=== PATIENT | male | born 1970 | race Caucasian/White ===

== ENCOUNTER 2020-07-03 17:31 | Emergency (ER) | payer OTHER ==
[~2020-07-03] VITALS: Ht 180.3 cm; Wt 105.0 kg
[2020-07-03] MEDS ORDERED: IV NORMAL SALINE 1,000ML 1,000 ML IV SCH (18:36)
--- NOTE | 2020-07-03 18:40 | PHYS DOC ---
Past History Past Medical History: No Pertinent History Adult General Chief Complaint Chief Complaint: COUGH HPI HPI Patient is a 49-year-old female who presents with generalized malaise, URI-like symptoms and chest pain. Onset of symptoms was today. Patient reports URI-like symptoms that started 3 days ago with worsening malaise and development of substernal chest pain today. Nothing known makes better or worse. Patient describes 5/10 severity chest pain that is nonradiating and causes difficulty when breathing. Timing of symptoms has been constant and worsening since onset. Associated symptoms include dull headache, rhinorrhea, postnasal drip, dry cough, chest pain as described above, and x2 episodes of diarrhea which is new for him. Patient denies any fever, recent long distance travel or concerning ingestions, no hemoptysis, no history of blood clots, no history of cardiac disease. Patient denies smoking, alcohol, or illicit drug use. Patient does report working with [employer] and having great exposure to general public, he also reports his brother has had similar URI-like symptoms for which she has had great exposure to, his brother is not been tested for COVID-19 Review of Systems Review of Systems Fourteen body systems of review of systems have been reviewed. See HPI for pertinent positives and negative responses, other helms all other systems are negative, non-pertinent or non-contributory Physical Exam Physical Exam Constitutional: Well developed, well nourished, no acute distress, non-toxic appearance. HENT: Normocephalic, atraumatic, bilateral external ears normal, bilateral middle ears without any findings of acute disease, postnasal drip present, oropharynx moist, no oral exudates, external nose unremarkable, bilateral engorged nasal turbinates with rhinorrhea,. Eyes: PERRLA, EOMI, conjunctiva normal, no discharge. Neck: Normal range of motion, no tenderness, supple, no stridor. Cardiovascular: Heart rate regular, sinus rhythm, no murmurs rubs or gallops Lungs & Thorax: Bilateral breath sounds clear to auscultation Abdomen: Bowel sounds normal, soft, no tenderness, no masses, no pulsatile masses. Nonsurgical abdomen, no peritoneal signs Skin: Warm, dry, no erythema, no rash. Back: No tenderness, no CVA tenderness. Extremities: No tenderness, no cyanosis, no clubbing, ROM intact, no edema. Neurologic: Alert and oriented X 3, grossly normal motor & sensory function, no focal deficits noted. Psychologic: Affect normal, judgement normal, mood normal. EKG EKG EKG ordered and interpreted by myself at 2015 hrs. as sinus rhythm at 80 bpm, unremarkable intervals, no axis deviation, no acute ischemic findings, no STEMI Radiology/Procedures Radiology/Procedures PROCEDURE: PORTABLE CHEST 1V PORTABLE CHEST 1V 07/03/2020 6:36 PM INDICATION: Chest pain COMPARISON: None available TECHNIQUE: Portable frontal view of the chest is provided. FINDINGS: The cardiomediastinal silhouette is within normal limits. Lungs are clear. There are no significant pleural effusions. There is no pulmonary vascular congestion. No pneumothorax. No suspicious osseous abnormality. IMPRESSION: There is no acute cardiopulmonary process. Electronically signed by: Nichole Duron MD (07/03/2020 7:07 PM) [facility] [place] Course & Med Decision Making Course & Med Decision Making Ambulatory patient seen and evaluated on immediate ER arrival ABCs grossly non-concerning Comprehensive history and physical exam obtained with subsequent diagnostic studies ordered IV access obtained and 1 L IV normal saline and 325 mg p.o. aspirin administered Patient reassessed serially throughout ER visit without change in symptomology Ultimately, comprehensive work-up and findings resulted in no emergent or surgical findings I discussed most likely diagnosis of viral syndrome versus COVID for high risk patient with potential contact with brother who is suffering from similar symptomology I discussed patient is now a person under investigation, the meaning of this, supportive care measures, and need for home quarantine until notified of negative result, he understood this well Strict return precautions were discussed at great length with good understanding by patient, all questions and concerns addressed prior to ER departure in stable condition with continued supportive care advised Parvez Disclaimer Parvez Disclaimer This electronic medical record was generated, in whole or in part, using a voice recognition dictation system. The HEART Score for CP Pts HEART Score for Chest Pain: HEART Score for Chest Pain Response (Comments) Value History Slighlty/Non-Suspicious 0 ECG Normal 0 Age >45 - < 65 1 Risk Factors No Risk Factors 0 Troponin < Normal Limit 0 Total 1 Risk Factors: Risk Factors: DM, Current or recent (<one month) smoker, HTN, HLP, family h istory of CAD, obesity. Risk Scores: Score 0 - 3: 2.5% MACE over next 6 weeks - Discharge Home Score 4 - 6: 20.3% MACE over next 6 weeks - Admit for Clinical Observation Score 7 - 10: 72.7% MACE over next 6 weeks - Early Invasive Strategies PERC Rule for PE PERC Rule for PE Response (Comments) Value Age > 50: No 0 HR > 100: No 0 Sa02 on room air <95%: No 0 Unilateral leg swelling: No 0 Hemoptysis: No 0 Recent surgery or trauma: No 0 Prior PE or DVT: No 0 Hormone use: No 0 Total 0 Departure Departure: Impression: Primary Impression: Person under investigation for COVID-19 Additional Impressions: Diarrhea Rhinorrhea Disposition: HOME/RESIDENCE PRIOR TO ADM Condition: STABLE Referrals: ALVINA PAULA APRN (PCP) Additional Instructions: Short You were evaluated in the Emergency Department today for a cough. Your evaluation suggests a viral infection such as Coronavirus. It is important that you continue to self isolate and practice good hygiene at home. Please follow up with your primary care physician as discussed. Return to the Emergency Department if you experience worsening cough, fever, shortness of breath, recurrent vomiting, lethargy, or any other concerning symptoms. Thank you for choosing us for your care. Usted fue evaluado en el Departamento de Emergencia hoy por tos. Strauss evaluacin sugiere ty infeccin viral nilesh el coronavirus. Es importante que contine aislndose y practicando ty buena higiene en el hogar. Shaun un seguimiento con strauss mdico de atencin primaria nilesh se discuti. Regrese al Departamento de Emergencias si experimenta un empeoramiento de la tos, fiebre, falta de aliento, vmitos recurrentes, letargo o cualquier otro sntoma relacionado. Shanel por elegir nosotros para strauss atencin. Home Care Instructions for Patients with Mild Respiratory Infection Most people with respiratory infections like colds, the flu, and Coronavirus Disease (COVID-19) will have mild illness and can get better with appropriate home care and without the need to see a provider. People who are elderly, , or have a weak immune system, or other medical problem are at higher risk of more serious illness or complications. It is recommended that they carefully monitor their symptoms closely and seek medical care early if their symptoms get worse. TREATMENT AND MEDICAL CARE Treatment There is no specific treatment for most viruses including those that that cause the common cold and those that cause COVID-19. Sometimes there is treatment for the viruses that cause influenza if given early. Antibiotics treat infections caused by bacteria, but they do not work against viruses.Most people recover on their own from these viruses, including COVID-19. Here are steps that you can take to help you get better: Rest Drink plenty of fluids Take krnj-ddp-wcpgkkl cold and flu medications to reduce fever and pain. Follow the instructions on the package, unless your doctor gave you instructions. Note that these medicines do not ``cure the illness and therefore do not stop you from spreading germs. Children should not be given medication that contains aspirin (acetylsalicylic acid) because it can cause a rare but serious illness called Marty syndrome. Medicines without aspirin include acetaminophen (Tylenol) and ibuprofen (Advil, Motrin). Children younger than age 2 should not be given any aezg-uoq-ftgyyxj cold medications without first speaking with a doctor.Seeking Medical Care You should seek medical care if you are not getting better within a week, or if your symptoms get worse. If you are elderly, , have a weak immune system, or other medical problems, call your doctor right away. It is best to call ahead of time to discuss your symptoms, if possible. This may allow you to receive the advice you need by phone. By avoiding a visit to a healthcare facility, you protect yourself from getting a new infection and protect others from catching an infection from you. If you do visit a healthcare facility, put on a mask to protect other patients and staff. It is recommended that you seek medical care for serious symptoms, such as: People with potentially life-threatening symptoms should call 911. If possible, put on a facemask before emergency medical services arrive.PROTECTING OTHERS Follow the steps below to help prevent the disease from spreading to people in your home and community.Stay home when you are sick Stay home - do not go to work, school, or public areas. Stay home for at least 24 hours after your symptoms have gone away without the use of fever-reducing medicines. If you must leave home while you are sick, try to avoid using public transportation, ride-shares, and taxis. Wear a mask if possible. Separate yourself from other people and animals in your home Stay in a specific room and away from other people in your home as much as possible. Use a separate bathroom, if available. Try to stay at least 6 feet from others. Do not handle pets or other animals while you are sick. Cover your coughs and sneezes Cover your mouth and nose with a tissue when you cough or sneeze. Throw used tissues in a lined trash can; immediately wash your hands. Avoid sharing personal household items Do not share dishes, drinking glasses, cups, eating utensils, towels, or bedding with other people or pets in your home. Wash them thoroughly with soap and water after use. Clean your hands often Wash your hands often with soap and water for at least 20 seconds. If soap and water are not available, clean your hands with an alcohol-based hand physician assistant that contains at least 60% alcohol, covering all surfaces of your hands and rubbing them together until they feel dry. Use soap and water if your hands are visibly dirty. Clean all ``high-touch surfaces every day High touch surfaces include counters, tabletops, doorknobs, bathroom fixtures, toilets, phones, keyboards, tablets, and bedside tables. Also, clean any surfaces that may have body fluids on them. Use a household cleaning spray or wipe, according to the product label instructions. COVID-19 (Novel Coronavirus) FAQs for Inquiring Patients What do you do if you are worried that you have been exposed to COVID-19 but are without any symptoms? If you develop symptoms that may indicate an infection, contact your physician. These include fever, cough, and shortness of breath. Testing is not available for asymptomatic individuals, regardless of travel history. To reduce the chance of getting sick use general infection prevention measures such as hand washing, covering your mouth and nose when you cough or sneeze and discarding any tissues carefully, and staying home when you are sick.Can exceptions be made for patients who are really worried and want to be tested? Presently testing is only available through the [facility] Department of Public Health and Centers for Disease Control and Prevention. Only patients who meet the updated COVID-19 PUI definition may be tested. We do not control or set the PUI definition or evaluation criteria. We are unable to provide testing to patients who do not meet the strict criteria. Should patients cancel or postpone an upcoming trip? The decision about travel is personal and should be made in the context of a persons underlying health conditions, reason for travel and necessity of travel. Travel insurance generally does not cover cancellations due to concerns of infectious disease outbreaks. The Center for Disease Control has a section on travel notices. Situations are changing frequently and you should monitor the site for updates. Should situations change rapidly in a foreign country while they are traveling, you could be subject to quarantine or restrictions upon return to the [facility]. It is best to have a plan on how to return urgently if needed during a trip abroad. Because of how air circulates and is filtered on airplanes, most viruses do not spread easily on airplanes. CDC does not recommend use of facemasks during air travel.What other general precautions are advised? Patients should be instructed to: Avoid close contact with people who are sick. Avoid touching your eyes, nose and mouth. Stay home from work or school when they are sick. If you have a fever, you should remain home until 24 hours after fever resolves. Clean and disinfect frequently touched objects and surfaces using a regular household cleaning spray or wipe. Sneeze/cough into their elbow, not your hand. Practice frequent hand hygiene with soap and water (at least 20 seconds) or alcohol-based hand rub. Consider avoiding crowded places or mass gatherings, especially if you are immunocompromised or have chronic lung disease. There is no evidence to support transmission of COVID-19 from goods imported from [place]. Are there any special precautions that are recommended if I am ? There is not yet any information available about the susceptibility of women to COVID-19. As a general rule, women may be more susceptible to viral respiratory infections and at risk for more severe illness. The CDC guidance for COVID-19 and has answers to questions about transmission during delivery, as well as other situations. Should food, water, or medications be stockpiled? Should people telecommute? The CDC has excellent information on this. Please visit the CDCs guidance for getting your household ready for COVID-19. What should I do if I start feeling sick at work? And what should the workplace do for anyone exposed? Anyone who is sick with a fever and cough should stay home from work until at least 24 hours after resolution of fever, regardless of concerns for COVID-19. It is still influenza (flu) season and influenza remains far more common. Justification of Admission: Justification of Admission: Justification of Admission Dx: N/A Problem Qualifiers ANDREI WEBSTER DO Jul 03, 2020 18:40
--- NOTE | 2020-07-03 19:10 | RAD ---
PORTABLE CHEST 1V 07/03/2020 6:36 PM INDICATION: Chest pain COMPARISON: None available TECHNIQUE: Portable frontal view of the chest is provided. FINDINGS: The cardiomediastinal silhouette is within normal limits. Lungs are clear. There are no significant pleural effusions. There is no pulmonary vascular congestion. No pneumothorax. No suspicious osseous abnormality. IMPRESSION: There is no acute cardiopulmonary process. Electronically signed by: Nichole Duron MD (07/03/2020 7:07 PM) [facility]
[2020-07-03 19:25] LABS: BASO % 0 % (0-3); EOS % 1 % (0-3); HEMOGLOBIN 14.7 g/dL (13.0-17.5); LYMPH # 1.1 x10^3/uL (1.0-4.8); LYMPH % 25 % (24-48); MEAN CORPUSCULAR HEMOGLOBIN 30 pg (25-35); MEAN CORPUSCULAR HGB CONC 34 g/dL (31-37); MEAN CORPUSCULAR VOLUME 88 fL (79-100); MONO # 0.9 x10^3/uL (0.0-1.1); MONO % 20 % (0-9); NEUT # 2.5 x10^3uL (1.8-7.7); NEUT % 55 % (31-73); PLATELET COUNT 157 x10^3/uL (140-400); RED BLOOD COUNT 4.86 x10^6/uL (4.30-5.70); RED CELL DISTRIBUTION WIDTH 13.3 % (11.5-14.5); WHITE BLOOD COUNT 4.5 x10^3/uL (4.0-11.0)
[2020-07-03 19:30] LABS: CALCIUM 8.3 mg/dL (8.5-10.1); CREATININE 1.3 mg/dL (0.7-1.3); GFR 59.2; POTASSIUM 3.6 mmol/L (3.5-5.1)
[2020-07-03 19:36] LABS: ALBUMIN 3.9 g/dL (3.4-5.0); ALBUMIN/GLOBULIN RATIO 1.2 (1.0-1.7); TOTAL BILIRUBIN 0.6 mg/dL (0.2-1.0); TOTAL PROTEIN 7.2 g/dL (6.4-8.2)
[2020-07-03] MEDS ORDERED: ASPIRIN CHEWABLE 81 MG TABLET. PO ONE (19:45)
[2020-07-03 20:30] LABS: % BANDS 3 % (0-9); % LYMPHS 24 % (24-48); % MONOS 20 % (0-10); % SEGS 53 % (35-66)
[2020-07-03 20:31] LABS: PLT ESTIMATE ADEQUATE (ADEQUATE)
[2020-07-03 20:45] VITALS: BP 130/81
--- NOTE | 2020-07-04 08:27 | EKG ---
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
--- NOTE | 2020-07-06 09:02 | NUR ---
IP: notified patient of COVID results, discussed precautions, patient verbalized understanding.
== END 2020-07-03 20:45 | disposition home or self-care (01) ==
LOC: ER 17:31
DX: U07.1 COVID-19 (principal); R19.7 Diarrhea, unspecified; J34.89 Other specified disorders of nose and nasal sinuses
CPT/HCPCS: 36415; 71045; 80053; 82550; 84484; 85007; 85025; 93005; 96360; 99285; C9803; J7030; U0003

== ENCOUNTER 2021-06-26 23:22 | Emergency (ER) | payer BC, OTHER ==
[~2021-06-26] VITALS: Ht 182.9 cm; Wt 104.0 kg
--- NOTE | 2021-06-26 23:45 | PHYS DOC ---
Past History Past Medical History: No Pertinent History Past Surgical History: No Surgical History Alcohol Use: Rarely General Adult HPI: HPI: ".. I dropped a box on my Lt. foot about noon.. and it still sore.. " " I injuried it today about noon..." Patient is a 50 year old male who presents with left foot pain after accidentally dropping a box on it while at home. Patient has pain on the dorsal side of left foot there is obvious edema and contusion. There is no significant pain on loading of toes. Ankle is stable. No mid foot plantar changes. Comparison pulses equal to right foot. Patient normally healthy. 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 No recent travel. No specific ill contacts. No history immunosuppression. Review of Systems: Review of Systems: Constitutional: Denies fever or chills Eyes: Denies change in visual acuity HENT: Denies nasal congestion or sore throat Respiratory: Denies cough or shortness of breath Cardiovascular: Denies chest pain or edema GI: Denies abdominal pain, nausea, vomiting, bloody stools or diarrhea : Denies dysuria Musculoskeletal: Complains of crush injury left foot Integument: Denies rash Neurologic: Denies headache, focal weakness or sensory changes Endocrine: Denies polyuria or polydipsia Lymphatic: Denies swollen glands Psychiatric: Denies depression or anxiety Family History: Family History: Noncontributory presentation Current Medications: Current Meds: See nursing for home meds Allergies: Allergies: Allergies Coded Allergies Type Severity Reaction Last Updated Verified No Known Drug Allergies 07/03/20 No Physical Exam: PE: Constitutional: Moderate acute distress, non-toxic appearance. [] HENT: Normocephalic, atraumatic, bilateral external ears normal, oropharynx moist, no oral exudates, nose normal. [] Eyes: PERRLA, EOMI, conjunctiva normal, no discharge. [] Neck: Normal range of motion, no tenderness, supple, no stridor. [] Cardiovascular:Heart rate regular rhythm, no murmur [] Lungs & Thorax: Bilateral breath sounds clear to auscultation [] Abdomen: Bowel sounds normal, soft, no tenderness, no masses, no pulsatile masses. [] Skin: Warm, dry, no erythema, no rash. [] Back: No tenderness, no CVA tenderness. [] Extremities: Left foot tenderness, no cyanosis, no clubbing, ROM intact, left foot edema. [] Does have a limp when ambulating. Neurologic: Alert and oriented X 3, normal motor function, normal sensory function, no focal deficits noted. [] Psychologic: Affect anxious, judgement normal, mood normal. [] EKG: EKG: [] Radiology/Procedures: Radiology/Procedures: [][address] [address] IMAGING REPORT Signed PATIENT: JOSE SILVEIRA ACCOUNT: [id number] : 1970 LOCATION: ER AGE: 50 SEX: M EXAM STATUS: DEP ER ORD. PHYSICIAN: AMY MEDINA MD REASON: dropped box on foot, pain PROCEDURE: FOOT LEFT 3V EXAM: XR FOOT_LEFT 3 VIEWS 06/27/2021 12:05 AM CLINICAL INDICATION: Dropped box on foot COMPARISON: None TECHNIQUE: 3 views of the left FINDINGS: No acute fracture. Alignment is normal. Joint spaces are maintained. No focal soft tissue abnormality. IMPRESSION: No acute osseous abnormality. Electronically signed by: Gali Vazquez MD (06/27/2021 1:54 AM) [id number] DICTATED AND SIGNED BY: GALI VAZQUEZ MD DATE: 06/27/21 0153 CC: AMY MEDINA MD; PCP,NO ~MTH0 0 Heart Score: C/O Chest Pain: N/A Risk Factors: Risk Factors: DM, Current or recent (<one month) smoker, HTN, HLP, family history of CAD, obesity. Risk Scores: Score 0 - 3: 2.5% MACE over next 6 weeks - Discharge Home Score 4 - 6: 20.3% MACE over next 6 weeks - Admit for Clinical Observation Score 7 - 10: 72.7% MACE over next 6 weeks - Early Invasive Strategies Course & Med Decision Making: Course & Med Decision Making Pertinent Labs and Imaging studies reviewed. (See chart for details) Patient to rest left foot. Elevate. Ice packs as needed. Stiff shoe. Follow- up primary care. If still painful in 2 weeks re x-ray. Patient given work excuse for 3 days. Patient return if any concerns. Impression: [] 1. Left foot contusion Dragon Disclaimer: Parvez Disclaimer: This electronic medical record was generated, in whole or in part, using a voice recognition dictation system. Departure Departure: Referrals: PCP,EHSAN (PCP) Parvez Disclaimer This chart was dictated in whole or in part using Voice Recognition software in a busy, high-work load, and often noisy Emergency Department environment. It may contain unintended and wholly unrecognized errors or omissions. AMY MEDINA MD Jun 26, 2021 23:45
[2021-06-27 00:04] VITALS: BP 148/88
--- NOTE | 2021-06-27 01:57 | RAD ---
EXAM: XR FOOT_LEFT 3 VIEWS 06/27/2021 12:05 AM CLINICAL INDICATION: Dropped box on foot COMPARISON: None TECHNIQUE: 3 views of the left FINDINGS: No acute fracture. Alignment is normal. Joint spaces are maintained. No focal soft tissue abnormality. IMPRESSION: No acute osseous abnormality. Electronically signed by: Gali Vazquez MD (06/27/2021 1:54 AM) [id number]
== END 2021-06-27 00:49 | disposition home or self-care (01) ==
LOC: ER 23:22
DX: S90.32XA Contusion of left foot, initial encounter (principal); W22.8XXA Striking against or struck by other objects, initial encounter; Y93.89 Activity, other specified; Y92.89 Other specified places as the place of occurrence of the external cause; Y99.8 Other external cause status
CPT/HCPCS: 73630; 99283-25